=== PATIENT | female | born 2000 | race Caucasian/White ===

== ENCOUNTER 2020-11-15 22:08 | Emergency (ER) | payer MEDICAID ==
[~2020-11-15] VITALS: Ht 165.1 cm; Wt 56.7 kg
--- NOTE | 2020-11-15 22:45 | NUR ---
PT CAME TO THE ER C/O THROAT DISCOMFORT. SWOLLEN UVULA NOTED. PT ENDORSES SOB. PT AAOX4, VSS, RESPIRATIONS EVEN AND UNLABORED ON RA W/ NAD NOTED. PT CONNECTED TO THE [employer] AND POX
[2020-11-15] MEDS ORDERED: methylPREDNISolone SOD SUCC 125 MG/2ML VIAL ONE (23:54)
[2020-11-15] MEDS ORDERED: EPINEPHRINE (1:1000) 1 MG/ML AMPUL ONE (23:54)
[2020-11-15] MEDS ORDERED: PIPERACILLIN /TAZOBACTAM 3.375 G VIAL IV ONE (23:54)
[2020-11-15] MEDS ORDERED: diphenhydrAMINE HCL 50 MG/ML VIAL ONE (23:54)
[2020-11-15] MEDS ORDERED: FAMOTIDINE/PF INJ 20 MG/2 ML VIAL IV ONE (23:55)
[2020-11-16] MEDS ORDERED: PIPERACILLIN /TAZOBACTAM 3.375 G in IV D5W 50 ML IV ONE ×2
[2020-11-16] MEDS ORDERED: diphenhydrAMINE HCL 50 MG/ML VIAL IV ONE
[2020-11-16] MEDS ORDERED: FAMOTIDINE/PF INJ 20 MG/2 ML VIAL IV ONE
[2020-11-16] MEDS ORDERED: EPINEPHRINE (1:1000) MDV 30 MG/30ML VIAL SUBCUT ONE
[2020-11-16] MEDS ORDERED: methylPREDNISolone SOD SUCC 125 MG/2ML VIAL IV ONE
--- NOTE | 2020-11-16 00:10 | NUR ---
BLOOD COLLECTED AND SENT TO LAB
[2020-11-16 00:25] LABS: CALCIUM, SERUM 9.1 mg/dL (8.5-10.1); CREATININE 0.9 mg/dL (0.6-1.3); POTASSIUM 3.2 mmol/L (3.5-5.1)
[2020-11-16 00:29] LABS: BASOPHILS % (AUTO) 0.3 % (0.0-2.0); EOSINOPHILS % (AUTO) 2.2 % (0.0-6.0); HEMATOCRIT 42 % (33-45); HEMOGLOBIN 14.8 g/dL (11.5-14.8); LYMPHOCYTES # (AUTO) 1.9 /CMM (0.8-4.8); LYMPHOCYTES % (AUTO) 23.1 % (20.0-44.0); MEAN CORPUSCULAR HGB CONC 35 g/dl (31.0-36.0); MEAN CORPUSCULAR VOLUME 91 fL (82-100); MONOCYTES # (AUTO) 0.6 /CMM (0.1-1.30); MONOCYTES % (AUTO) 7.6 % (2.0-12.0); NEUTROPHILS # (AUTO) 5.6 /CMM (1.8-8.9); NEUTROPHILS % (AUTO) 66.8 % (43.0-81.0); PLATELET COUNT (AUTO) 212 /CMM (150-450); RED BLOOD CELL COUNT(AUTO) 4.65 MIL/uL (4.0-5.2); WHITE BLOOD COUNT (AUTO) 8.4 K/uL (4.3-11.0)
[2020-11-16 00:32] LABS: ALBUMIN 4.1 g/dL (3.4-5.0); BILIRUBIN,DIRECT 0.2 mg/dL (0.0-0.2); BILIRUBIN,TOTAL 0.8 mg/dL (0.2-1.0); TOTAL PROTEIN, SERUM 8.3 g/dL (6.4-8.2)
--- NOTE | 2020-11-16 01:13 | NUR ---
PT DENIES SOB AT THIS TIME. NO ACUTE DISTRESS NOTED. VSS.
--- NOTE | 2020-11-16 01:14 | NUR ---
LAB CALLED FOR NEGATIVE COVID RESULTS
[2020-11-16] MEDS ORDERED: IV PREMIX D5 1/2NS + KCL 1,000 ML IV ONE ×2 (01:30→01:40)
--- NOTE | 2020-11-16 01:36 | NUR ---
ASSUMED CARE. PT AMBULATORY TO THE BATHROOM, NO ACUTE DISTRESS NOTED, RESP EVEN AND UNLABORED. PT DENIES PAIN OR DISOCMFORT AT THIS TIME. WILL CONTINUE TO MONITOR PT.
--- NOTE | 2020-11-16 02:10 | NUR ---
[facility] CALLED FOR HIGHER LEVEL OF CARE, NO BEDS AVAILABLE.
--- NOTE | 2020-11-16 02:14 | NUR ---
[facility] CALLED FOR HIGHER LEVEL OF CARE. NO BEDS AVAILABLE.
--- NOTE | 2020-11-16 02:20 | NUR ---
[facility] CALLED FOR HIGHER LEVEL OF CARE. NO BEDS AVAILABLE.
--- NOTE | 2020-11-16 02:31 | NUR ---
[facility] CALLED FOR HIGHER LEVEL OF CARE. UNABLE TO ACCPET PT.
--- NOTE | 2020-11-16 03:16 | NUR ---
PT AMBULATORY TO THE BATHRROM WITH STEADY GAIT NOTED. PT DENIES SOB, NO ACUTE DISTRESS NOTED AT THIS TIME.
--- NOTE | 2020-11-16 04:08 | NUR ---
[facility] CALLED FOR HIGHER LEVEL OF CARE TRANSFER. NO BEDS AVAILABLE OR NO ONCALL ENT
--- NOTE | 2020-11-16 05:51 | NUR ---
PT ASLEEP, EASILY AROUSABLE, NO ACUTE DISTRESS NOTED, RESP EVEN AND UNLABORED. CALL LIGHT WITHIN REACH. WILL CONTINUE TO MONITOR PT CLOSELY.
--- NOTE | 2020-11-16 07:12 | NUR ---
REPORT GIVEN TO AM [facility]IFT [facility]ENKAT BEAN FOR CONTINUITY OF CARE.
[2020-11-16] MEDS ORDERED: PIPERACILLIN /TAZOBACTAM 3.375 G in IV D5W 50 ML IV SCH (12:00)
[2020-11-16 12:15] VITALS: BP 117/75
--- NOTE | 2020-11-16 12:17 | NUR ---
Patient does not wish to proceed with medical care recommended by ( ). Patient given information related to possible complications, up to and including , which could occur as a result of leaving the hospital at this time. Patient verbalizes understanding of risks involved due to leaving against medical advice. Patient has signed AMA form.
== END 2020-11-16 12:16 | disposition left against medical advice (07) ==
LOC: ER 22:12
DX: K12.2 Cellulitis and abscess of mouth (principal); E87.6 Hypokalemia; Z20.828 Contact with and (suspected) exposure to other viral communicable diseases; Z86.19 Personal history of other infectious and parasitic diseases
CPT/HCPCS: 36415; 80048; 80076; 85025; 85730; 87426; 96365; 96366; 96367; 96372; 96375; 99291; C9803; J0171; J1200; J2543 ×2; J2930; J3490 ×2; J7060